=== PATIENT | female | born 1975 | race Caucasian/White ===

== ENCOUNTER 2016-12-03 19:15 | Inpatient (IN) | payer OTHER ==
--- NOTE | ~2016-12-03 | OP ---
Record Of Operation [facility] [address] [place]. [address] NAME: LAMBERT MILNER : 71 STATUS : ADM IN PAT#: [id number] AGE: 41 ADM/REG DATE : 12/03/16 MR#: [id number] REPORT SERV DATE: 12/10/16 DICTATED BY: MEY CHICAS JR. DATE: 12/09/16 REPORT STATUS : Draft TRANSCRIBED BY: MYLES DATE: 12/09/16 DATE OF PROCEDURE: 12/09/2016 COMMERCIAL FISHERMAN: Ariane Lockwood. PROCEDURE: Left rjvqs-woh-mjde amputation. PREOPERATIVE DIAGNOSIS: Left foot ulcer with osteomyelitis. POSTOPERATIVE DIAGNOSIS: Left foot ulcer with osteomyelitis. ANESTHESIA: General. INDICATIONS: The patient has a history of diabetic foot ulcer. She had transmetatarsal amputation. This had nonhealing of the wound with imaging showing persistent osteomyelitis. Hnrll-kqi-flft amputation is indicated for treatment. FINDINGS: There was viable tissue at the division site. DESCRIPTION OF PROCEDURE: With adequate general anesthesia, the patient was placed in supine position. The left leg was prepped and draped sterilely. A standard below the knee amputation of the posterior flap incision was outlined four fingerbreadths below the tibial prominence. Incision was made and deepened into the soft tissues. The tibia was identified. This was divided with the oscillating saw. Remaining soft tissue was divided down to the fibula was similarly divided. Main vessels were clamped and divided. Remaining soft tissue divided with the amputation knife, which enabled to move the specimen that was submitted to Pathology. Additional bleeders controlled with suture ligatures of Vicryl, electrocautery, and then the main vessels with suture ligatures of silk. Then, the wound was closed in layers with 0 Vicryl sutures to the fascial layers. Then the skin was approximated with mattress suture of 3-0 nylon and wan for the skin. A Prevena type addressed dressing was placed over the wound. The patient left the operating room in satisfactory condition. ESTIMATED BLOOD LOSS: 100 mL. LAVERN/MYLES Mey Chicas Jr., M.D. / [id number] CC: Jose Rouse MD
--- NOTE | ~2016-12-03 | DS ---
Discharge Summary [facility] [address] [place]. [address] NAME: LAMBERT MILNER : 71 STATUS : DIS IN PAT#: [id number] AGE: 41 ADM/REG DATE : 12/03/16 MR#: [id number] REPORT SERV DATE: 12/22/16 DICTATED BY: MARCELLA ROUSE DATE: 12/21/16 REPORT STATUS : Draft TRANSCRIBED BY: MODL DATE: 12/21/16 ADMISSION DATE: 12/03/2016 DISCHARGE DATE: 12/21/2016 REASON FOR ADMISSION: Left lower extremity osteomyelitis. HISTORY OF PRESENT ILLNESS: Please refer to Dr. Sigala's history and physical dated 12/03/2016 for complete details regarding the patient's admission. In brief, the patient was admitted to the Hospitalist Service for management and evaluation of her left foot ulcer and uncontrolled diabetes. HOSPITAL COURSE: From admission to 12/12/2016, please refer to Adolfo Sánchez' interim summary. In brief, the patient was diagnosed with left foot osteomyelitis and had a BKA from Dr. Curran. Her diabetes was uncontrolled and we tried to manage that with insulin, but she was noncompliant and finally was able to get that straightened out. For hospital course from 12/12/2016 to 12/19/2016, please refer to Dr. Tovar's interim summary. During that week, efforts were spent by case management and social work to try and find a place for the patient in the rehab facility. Her BKA and other medical issues have been stable. Dr. Tovar made a couple of adjustments to her insulin regimen. Hospital course from 12/19/2016 to present, I assumed care of this patient on the from Dr. Tovar, at which point, her diabetes had been decently controlled. We have been trying to arrange for rehab at [facility] in [place]. After the patient's conversation with the facility, she was rude to them and rather demanding and the patient hung up the phone on the call center coordinator after which the facility decided that they would not accept the patient. Case management and social work had attempted to find the patient facility. However, there are no facilities that would accept her given her behavior and insurance, and we were unable to arrange for home health because of her past behavior and noncompliance, and home health has refused to take her. We are stuck with discharging the patient home. We will teach her how to do wound care, which all that is required with wound care is just dressing changes periodically. We will make a followup appointment with [facility] and for the patient to follow up with Dr. Curran. Her pain has been controlled. She has reached maximal hospitalization, and again has burned all of her bridges with her behavior and noncompliance that we are stuck sending her home. The patient will be discharged home today in a stable condition. DISCHARGE DIAGNOSES: 1. Left foot osteomyelitis, status post hvlml-ekg-woqe amputation by Dr. Curran. 2. Type 2 diabetes, uncontrolled with hemoglobin A1c of 15.1%. 3. Hypertension. 4. Obesity. 5. Tobacco dependency. Meth use. PROCEDURES: Include Dr. Curran, left BKA; foot x-ray; three-phase bone scan. DISCHARGE MEDICATIONS: Include insulin Levemir FlexPen 40 units twice a day, lisinopril 10 mg daily, Humalog 20 units before meals, metformin 1000 mg twice a day, Percocet 5/325 mg Discharge Summary [address] [address] NAME: LAMBERT MILNER : 71 STATUS : DIS IN PAT#: [id number] AGE: 41 ADM/REG DATE : 12/03/16 MR#: [id number] REPORT SERV DATE: 12/22/16 DICTATED BY: MARCELLA ROUSE DATE: 12/21/16 REPORT STATUS : Draft TRANSCRIBED BY: MODL DATE: 12/21/16 every eight hours p.r.n. pain, #20 given. The patient followup with the [facility] and Dr. Curran. I spent over 30 minutes discharge planning and coordination of care on this patient. DICTATED BY: MD JOSE Mcneil/MYLES Marcella Rouse MD / [id number] CC: Marcella Rouse MD
--- NOTE | ~2016-12-03 | HP ---
History And Physical [address] [address] NAME: LAMBERT MILNER : 71 STATUS : ADM IN [facility]#: [id number] AGE: 41 ADM/REG DATE : 12/03/16 MR#: [id number] REPORT SERV DATE: 12/04/16 DICTATED BY: CLARY SIGALA DATE: 12/03/16 REPORT STATUS : Draft TRANSCRIBED BY: MODTony DATE: 12/03/16 DATE OF ADMISSION: 12/03/2016 CHIEF COMPLAINT: A 41-year-old female, presenting with left foot infection. HISTORY OF PRESENT ILLNESS: The patient's history was obtained through careful interview with the patient and friend, coupled with review of [facility] medical records. The patient has had multiple partial amputations of her left foot from osteomyelitis and recurrent diabetic foot ulcer with infection; now over the last two weeks, she has had blistering, swelling, and redness extending up her left foot. She describes left foot discomfort, a throbbing cramp in quality, 6/10 severity. She has had increasing purulent drainage. She has had poor balance, dizziness, and lightheadedness. No fevers or chills. No nausea or vomiting. No shortness of breath. The patient admits that she was unable to fill a prescription for supplies related to her Levemir dosing as they were too expensive and therefore she is literally been not taking her basal insulin and not checking her blood sugars for several weeks now. REVIEW OF SYSTEMS: Otherwise, a 14-point review of systems was obtained was negative. PAST MEDICAL HISTORY: 1. Diabetes. 2. Group B strep and MRSA infections. 3. Cardiac arrhythmia status post ablation and pacemaker placement. 4. COPD. 5. Gastroesophageal reflux disorder. 6. Cellulitis with ulcers. 7. Polysubstance abuse with benzodiazepines and amphetamines. 8. Neuropathy. 9. Fatty liver disease. PAST SURGICAL HISTORY: 1. Foot amputations. 2. Cardiac ablation status post pacemaker placement. 3. Hysterectomy. 4. Cervical spine surgery. 5. Tubal ligation. 6. Right pubic abscess and drainage. History And Physical [address] [place]. [address] NAME: LAMBERT MILNER : 71 STATUS : ADM IN [facility]#: [id number] AGE: 41 ADM/REG DATE : 12/03/16 MR#: [id number] REPORT SERV DATE: 12/04/16 DICTATED BY: CLARY SIGALA DATE: 12/03/16 REPORT STATUS : Draft TRANSCRIBED BY: MYLES DATE: 12/03/16 ALLERGIES: NO KNOWN DRUG ALLERGIES. SOCIAL HISTORY: The patient smokes. Does not drink alcohol. Lives in [place], [place]. Lives alone, has 19-year-old son. She is seen by Home Health Care and the [facility]. FAMILY HISTORY: Father of complications of diabetes when he was only 56 years old and had undergone amputations as well. A strong family history of cancer and heart disease. CURRENT MEDICATIONS: 1. Levemir 40 units subcutaneous twice a day. 2. Humalog 20 units before each meal. 3. Sliding-scale insulin. She has been out of her insulin for several weeks. 4. Metformin 1000 mg p.o. b.i.d. 5. Percocet p.r.n. 6. Bactrim Double Strength. PHYSICAL EXAMINATION: VITAL SIGNS: Temperature 98.6, pulse 72, blood pressure 138/82, respiratory rate 20, and O2 saturation 100% on room air. GENERAL: A pleasant, cooperative female, in no distress. HEENT: Pupils equal, round, and reactive to light. No conjunctival pallor. No scleral icterus. Nares are patent. Oropharynx is clear of obstruction. Moist mucous membranes. NECK: Trachea midline. No thyromegaly. LYMPH: No cervical lymphadenopathy. No supraclavicular lymphadenopathy. No inguinal lymphadenopathy. RESPIRATORY: Clear to auscultation at bases. No wheezes, rales, or rhonchi. Normal respiratory effort. CARDIOVASCULAR: Regular rate and rhythm. No murmurs, rubs, or gallops. No current extremity edema is appreciated. ABDOMEN: Soft, nontender, and nondistended. Normal bowel sounds auscultated throughout. No hepatosplenomegaly. DERMATOLOGICAL: The patient has significant erythema, heat, swelling, tenderness, all over her left foot associated with chronic ulceration with now purulent drainage and blistering effect, and some necrotic looking debris around the ulcer. Otherwise, warm and dry extremities. No pallor. No cyanosis. PSYCHIATRIC: Tearful affect, claims to be in a good mood though. Alert and oriented x3. LABORATORY DATA: White blood cell count 10.2, hemoglobin 12, hematocrit 38, and platelets 307. Sodium 131, potassium 3.9, chloride 98, bicarb 28, BUN 15, creatinine 0.17, and glucose 492. STUDIES: An x-ray of the left foot suggest osteomyelitis. ASSESSMENT AND PLAN: 1. Left foot ulcer infection. Check wound culture. Check blood cultures. Check an MRI History And Physical [address] [place]. [address] NAME: LAMBERT MILNER : 71 STATUS : ADM IN [facility]#: [id number] AGE: 41 ADM/REG DATE : 12/03/16 MR#: [id number] REPORT SERV DATE: 12/04/16 DICTATED BY: CLARY SIGALA DATE: 12/03/16 REPORT STATUS : Draft TRANSCRIBED BY: MYLES DATE: 12/03/16 of the foot to further define possible abscess and osteomyelitis, history of group B strep and MRSA. We will initially place on IV vancomycin and IV Zosyn. 2. Uncontrolled diabetes. Check hemoglobin A1c. Noncompliant with checking blood sugars because of inability to afford her diabetic supplies. We will obtain a Case Management consult, [employer] consult. Restart basal insulin and sliding scale insulin. 3. Chronic obstructive pulmonary disease. Counseled tobacco abstinence. Place on DuoNeb nebulizers. DAVL/MYLES Clary Sigala M.D. / [id number] CC: MD Ronaldo Dahl M.D.
--- NOTE | ~2016-12-03 | IDS ---
Interim Discharge Summary [facility] [address] [place]. [address] NAME: LAMBERT MILNER : 71 STATUS : ADM IN PAT#: [id number] AGE: 41 ADM/REG DATE : 12/03/16 MR#: [id number] REPORT SERV DATE: 12/12/16 DICTATED BY: DATE: REPORT STATUS : Draft TRANSCRIBED BY: MODL DATE: 12/12/16 ADMISSION DATE: 12/03/2016 DISCHARGE DATE: INTERIM DISCHARGE DIAGNOSES: 1. Left foot osteomyelitis status post bilateral knee amputation, postop day #3. 2. Diabetes mellitus type 2, hemoglobin A1c 15.1. 3. Hypertension. 4. Obesity with a BMI of 32. 5. Tobacco dependence. 6. Methamphetamine dependence. CONSULTING PHYSICIANS: Include Dr. Fidel Curran with Surgery. IMAGING: Includes left foot x-ray as well as a three-phase bone scan which was positive for osteomyelitis. PROCEDURES: Include a left BKA performed by Dr. Fidel Curran. For full H and P, please refer to Dr. Ryan Sigala's dictation on 12/03/2016. HOSPITAL COURSE/PROBLEM LIST: 1. Left foot osteomyelitis status post BKA. The patient has done well postop. She has received pain control with Dilaudid IV which I will decrease from 1 mg q.2 hours to 0.5 mg q.4 hours p.r.n., and increase Percocet to 10 mg p.o. q.4 hours upon patient request to wean Dilaudid. The patient has been afebrile. Last white blood cell count was 11.7 on 12/11/2016. She is still on IV vancomycin. I will recheck a CBC in the morning to check the white blood cell count as well as monitor for fevers. The patient is afebrile tomorrow, and white blood cell count was within normal limits. Considering, the patient had a BKA, likely the IV vancomycin could be discontinued. 2. Diabetes mellitus type 2 with hemoglobin A1c of 15.1. The patient is currently on Levemir 50 units subcu b.i.d. as well as 25 units insulin aspart during meals and level 3 sliding-scale. The patient's blood glucose has ranged from 100s to 300s. The patient frequently leaves the floor to smoke outside, and eats food out of vending machines. She is noncompliant with her diet so it is difficult to control her blood sugars. However, over the last 24 hours, they have improved quite greatly ranging from 98 to 214. 3. Hypertension. This is controlled. 4. Obesity with a BMI of 32. Importance of adherence to diet was discussed with the patient. 5. Tobacco dependence. I ordered nicotine patch which the patient reports itching "all over" so it was discontinued. 6. Methamphetamine, IV dependence. The patient reported to me several days ago that she was using IV methamphetamine and quit on her own a week prior to admission to the hospital. She asked for help in the form of inpatient drug rehabilitation. Case Management is aware. She first needs to go to inpatient rehab for physical therapy due Interim Discharge Summary [address] [address] NAME: LAMBERT MILNER : 71 STATUS : ADM IN PAT#: [id number] AGE: 41 ADM/REG DATE : 12/03/16 MR#: [id number] REPORT SERV DATE: 12/12/16 DICTATED BY: DATE: REPORT STATUS : Draft TRANSCRIBED BY: MODL DATE: 12/12/16 to her BKA and then afterwards, we are arranging for the patient to go to an inpatient drug and alcohol rehabilitation center. The patient is medically stable at this time and likely after Case Management choices the patient for inpatient rehab, she will be able to be discharged safely in the next several days. WILVER/MODL Christopher Sánchez NP / [id number] CC: MD Fidel Mcneil MD
--- NOTE | ~2016-12-03 | IDS ---
Interim Discharge Summary [facility] [address] [place]. [address] NAME: LAMBERT MILNER : 71 STATUS : ADM IN PAT#: [id number] AGE: 41 ADM/REG DATE : 12/03/16 MR#: [id number] REPORT SERV DATE: 12/19/16 DICTATED BY: MEY MITCHELL DATE: 12/19/16 REPORT STATUS : Draft TRANSCRIBED BY: MYLES DATE: 12/19/16 ADMISSION DATE: 12/03/2016 DISCHARGE DATE: ADDENDUM: This dictation is an addition to interim discharge summary dictated by Christopher Sánchez NP, on 12/12/2016. I assumed care of the patient on 12/13/2016. At that time, the patient was status post left BKA. Case Management had already been consulted and was working on placement for the patient. Rehab placement has proved to be difficult due to concerns about her meth abuse and her medical noncompliance. The patient was initially rejected from [facility] and also rejected by [facility]; however, rehab placement has been found by Case Management for the patient with plans of the patient being transferred to facility tomorrow. While the patient was under my care, she has remained hemodynamically stable. Her tobacco use was readdressed with the patient. She, at this point, is not willing to quit and states that she tried the nicotine patch which broke her out. She gains comfort from the fact that she was told that her lungs were very clear and not consistent with that of a smoker prior to surgery. All other information in the interim discharge summary remains the same. Of note, case management is greatly appreciated for their hard work and their efforts in finding placement for the patient. DAMIAN Mey Mitchell MD / [id number] CC: Mey Mitchell MD UNKNOWN
[~2016-12-03 19:15] MED LIST: ADVIL PO; ALEVE220 MG PO; BACTRIM DS1 TAB PO; BACTRIM PO; BIST PO; DAKINS TOP; DSS PO; EX-LAX PO; FLAG500TAB PO; FLORASTOR250 MG PO; GLUCOPHAGE1000 MG PO; GLUCPH PO; HUMALOG SC; HUMALOGPEN SC; IODOSORB TOP; LANTUS FOR SC; LEVAQUIN750 MG PO; LEVEMFLXPN SC; LEVEMIR SC; LIDO5OINT TOP; MONODOX100 MG PO; NICODERM C21 MG/241 TOP; NORCO1 TA1 PO; NOVOLOG SC; PCET PO; ZOVIRAX400 MG PO
[2016-12-03 20:00] LABS: BASOPHILS 0.3 %; BASOPHILS ABSOLUTE 0.03 10/3/uL (0.0-0.16); EOSINOPHILS ABSOLUTE 0.31 10/3/uL (0.0-0.53); HEMOGLOBIN 12.3 g/dL (12.0-16.0); IMMATURE GRANULOCYTES 0.3 %; IMMATURE GRANULOCYTES ABSOLUTE 0.03 10/3/uL (0.0-0.11); LYMPHOCYTES 42.9 %; LYMPHOCYTES ABSOLUTE 4.36 10/3/uL (0.67-4.30); MEAN CORPUS HGB CONC 32.7 g/dL (32.0-36.0); MEAN CORPUSCULAR HEMOGLOB 24.8 pg (26.0-34.0); MEAN PLATELET VOLUME 9.2 fL (9.2-13.0); MONOCYTES 5.5 %; MONOCYTES ABSOLUTE 0.56 10/3/uL (0.21-1.20); NEUTROPHILS ABSOLUTE 4.88 10/3/uL (2.02-8.40); PLATELET COUNT 307 10/3/uL (150-400); RBC DISTRIBUTION WIDTH 16.1 % (12.0-16.0); WHITE BLOOD CELLS 10.2 10/3/uL (4.5-10.5)
[2016-12-03 20:03] LABS: HEMATOCRIT 37.6 % (36.0-48.0); MANUAL DIFF NO %; RED CELL COUNT 4.95 10/6/uL (4.0-5.6)
[2016-12-03 20:15] LABS: CALCIUM, SERUM 8.8 MG/DL (8.5-10.4); CHLORIDE, SERUM 98 MMOL/L (96-112); CO2 (CARBON DIOXIDE) 28 MMOL/L (24-34); CREATININE 1.17 MG/DL (0.55-1.02); GFR AFRICAN AMERICAN 66 ML/MIN (>=60); GFR NON AFRICAN AMERICAN 57 ML/MIN (>=60); POTASSIUM, SERUM 3.9 MMOL/L (3.5-5.3)
[2016-12-03 20:20] LABS: BUN (BLOOD UREA NITROGEN) 15 MG/DL (6-23); GLUCOSE, SERUM 492 MG/DL (60-99); SODIUM, SERUM 131 MMOL/L (135-148)
[2016-12-03 20:57] LABS: ACETONE NEG
[2016-12-04 06:37] LABS: BUN (BLOOD UREA NITROGEN) 13 MG/DL (6-23); CHLORIDE, SERUM 108 MMOL/L (96-112); CO2 (CARBON DIOXIDE) 21 MMOL/L (24-34); CREATININE 0.83 MG/DL (0.55-1.02); GFR AFRICAN AMERICAN 100 ML/MIN (>=60); GFR NON AFRICAN AMERICAN 86 ML/MIN (>=60); GLUCOSE, SERUM 378 MG/DL (60-99); POTASSIUM, SERUM 4.1 MMOL/L (3.5-5.3); SGPT(ALT) 9 U/L (5-65); SODIUM, SERUM 135 MMOL/L (135-148); TOTAL BILIRUBIN 0.6 MG/DL (0-1.2); ULTRASENSITIVE TSH 0.729 MCIU/ML (0.358-3.740)
[2016-12-04 06:38] LABS: A/G RATIO 0.4 (0.7-1.9); ALBUMIN 1.6 G/DL (3.5-5.0); ALKALINE PHOSPHATASE 114 U/L (45-117); GLOBULIN 4.1 G/DL (2.5-4.1); SGOT(AST) 12 U/L (5-40); TOTAL PROTEIN 5.7 G/DL (6.0-8.5)
[2016-12-04 07:06] LABS: BASOPHILS 0.4 %; BASOPHILS ABSOLUTE 0.03 10/3/uL (0.0-0.16); EOSINOPHILS ABSOLUTE 0.31 10/3/uL (0.0-0.53); HEMATOCRIT 36.7 % (36.0-48.0); HEMOGLOBIN 12.1 g/dL (12.0-16.0); IMMATURE GRANULOCYTES 0.1 %; IMMATURE GRANULOCYTES ABSOLUTE 0.01 10/3/uL (0.0-0.11); LYMPHOCYTES 42.1 %; LYMPHOCYTES ABSOLUTE 3.28 10/3/uL (0.67-4.30); MEAN CORPUSCULAR HEMOGLOB 24.9 pg (26.0-34.0); MEAN CORPUSCULAR VOLUME 75.7 fL (80-100); MEAN PLATELET VOLUME 8.8 fL (9.2-13.0); MONOCYTES 4.6 %; MONOCYTES ABSOLUTE 0.36 10/3/uL (0.21-1.20); NEUTROPHILS 48.8 %; PLATELET COUNT 270 10/3/uL (150-400); RED CELL COUNT 4.85 10/6/uL (4.0-5.6); WHITE BLOOD CELLS 7.8 10/3/uL (4.5-10.5)
[2016-12-04 07:17] LABS: MANUAL DIFF NO %
[2016-12-04 08:29] LABS: PARTIAL THROMBO TIME 26.7 SEC (22.5-37.2)
[2016-12-05 14:45] LABS: BASOPHILS 0.2 %; BASOPHILS ABSOLUTE 0.02 10/3/uL (0.0-0.16); EOSINOPHILS 3.3 %; EOSINOPHILS ABSOLUTE 0.28 10/3/uL (0.0-0.53); HEMATOCRIT 35.2 % (36.0-48.0); HEMOGLOBIN 11.5 g/dL (12.0-16.0); IMMATURE GRANULOCYTES 0.1 %; IMMATURE GRANULOCYTES ABSOLUTE 0.01 10/3/uL (0.0-0.11); LYMPHOCYTES 50.8 %; LYMPHOCYTES ABSOLUTE 4.33 10/3/uL (0.67-4.30); MEAN CORPUS HGB CONC 32.7 g/dL (32.0-36.0); MEAN CORPUSCULAR HEMOGLOB 24.9 pg (26.0-34.0); MEAN CORPUSCULAR VOLUME 76.4 fL (80-100); MONOCYTES 5.6 %; MONOCYTES ABSOLUTE 0.48 10/3/uL (0.21-1.20); PLATELET COUNT 291 10/3/uL (150-400); RBC DISTRIBUTION WIDTH 16.5 % (12.0-16.0); RED CELL COUNT 4.61 10/6/uL (4.0-5.6); WHITE BLOOD CELLS 8.5 10/3/uL (4.5-10.5)
[2016-12-05 14:46] LABS: MANUAL DIFF NO %
[2016-12-05 14:56] LABS: SGOT(AST) 11 U/L (5-40)
[2016-12-05 15:11] LABS: ALKALINE PHOSPHATASE 112 U/L (45-117); CHLORIDE, SERUM 110 MMOL/L (96-112); CREATININE 0.96 MG/DL (0.55-1.02); GFR AFRICAN AMERICAN 84 ML/MIN (>=60); GFR NON AFRICAN AMERICAN 72 ML/MIN (>=60); POTASSIUM, SERUM 4.1 MMOL/L (3.5-5.3); SGPT(ALT) 10 U/L (5-65)
[2016-12-05 15:13] LABS: A/G RATIO 0.4 (0.7-1.9); BUN (BLOOD UREA NITROGEN) 17 MG/DL (6-23); CALCIUM, SERUM 9.1 MG/DL (8.5-10.4); CO2 (CARBON DIOXIDE) 30 MMOL/L (24-34); GLOBULIN 5.1 G/DL (2.5-4.1); GLUCOSE, SERUM 118 MG/DL (60-99); SODIUM, SERUM 143 MMOL/L (135-148); TOTAL BILIRUBIN 0.1 MG/DL (0-1.2); TOTAL PROTEIN 7.1 G/DL (6.0-8.5)
[2016-12-06 07:47] LABS: BASOPHILS 0.3 %; BASOPHILS ABSOLUTE 0.02 10/3/uL (0.0-0.16); EOSINOPHILS 3.4 %; EOSINOPHILS ABSOLUTE 0.27 10/3/uL (0.0-0.53); HEMATOCRIT 38.9 % (36.0-48.0); HEMOGLOBIN 12.5 g/dL (12.0-16.0); IMMATURE GRANULOCYTES 0.3 %; IMMATURE GRANULOCYTES ABSOLUTE 0.02 10/3/uL (0.0-0.11); LYMPHOCYTES 43.8 %; LYMPHOCYTES ABSOLUTE 3.43 10/3/uL (0.67-4.30); MANUAL DIFF NO %; MEAN CORPUS HGB CONC 32.1 g/dL (32.0-36.0); MEAN CORPUSCULAR HEMOGLOB 24.9 pg (26.0-34.0); MEAN CORPUSCULAR VOLUME 77.3 fL (80-100); MEAN PLATELET VOLUME 8.9 fL (9.2-13.0); MONOCYTES 4.7 %; MONOCYTES ABSOLUTE 0.37 10/3/uL (0.21-1.20); NEUTROPHILS 47.5 %; NEUTROPHILS ABSOLUTE 3.73 10/3/uL (2.02-8.40); PLATELET COUNT 297 10/3/uL (150-400); RBC DISTRIBUTION WIDTH 16.1 % (12.0-16.0); RED CELL COUNT 5.03 10/6/uL (4.0-5.6); WHITE BLOOD CELLS 7.8 10/3/uL (4.5-10.5)
[2016-12-06 08:09] LABS: A/G RATIO 0.4 (0.7-1.9); ALBUMIN 2.1 G/DL (3.5-5.0); ALKALINE PHOSPHATASE 116 U/L (45-117); BUN (BLOOD UREA NITROGEN) 15 MG/DL (6-23); CALCIUM, SERUM 9.3 MG/DL (8.5-10.4); CHLORIDE, SERUM 106 MMOL/L (96-112); CO2 (CARBON DIOXIDE) 25 MMOL/L (24-34); CREATININE 0.92 MG/DL (0.55-1.02); GFR AFRICAN AMERICAN 88 ML/MIN (>=60); GFR NON AFRICAN AMERICAN 76 ML/MIN (>=60); GLOBULIN 5.5 G/DL (2.5-4.1); GLUCOSE, SERUM 324 MG/DL (60-99); POTASSIUM, SERUM 4.6 MMOL/L (3.5-5.3); SGOT(AST) 12 U/L (5-40); SGPT(ALT) 7 U/L (5-65); SODIUM, SERUM 138 MMOL/L (135-148); TOTAL BILIRUBIN 0.1 MG/DL (0-1.2); TOTAL PROTEIN 7.6 G/DL (6.0-8.5); VANCOMYCIN TROUGH 15.4 MCG/ML (10.0-20.0)
[2016-12-06 20:43] LABS: ASCORBIC ACID (UR NOT ORDER) NEG (NEG); BILIRUBIN, URINE NEGATIVE (NEG); KETONE, URINE NEGATIVE (NEG); LEUKOCYTE ESTERASE(NOT OR NEG (NEG); WBC (NOT ORDERED) (RFLEX) 3 (0-5)
[2016-12-06 21:51] LABS: AMPHETAMINES (NOT ORD) POS (NEG); BARBITURATES (NOT ORDERED NEG (NEG); BENZODIAZEPINES (NOT ORD) NEG (NEG); CANNABINOIDS (THC) NEG (NEG); COCAINE (NOT ORDERED) NEG (NEG); OPIATES POS (NEG); PHENCYCLIDINE(PCP) NEG (NEG); TRICYCLICS NEG (NEG)
[2016-12-07 05:37] LABS: BASOPHILS 0.3 %; BASOPHILS ABSOLUTE 0.02 10/3/uL (0.0-0.16); EOSINOPHILS 4.8 %; EOSINOPHILS ABSOLUTE 0.36 10/3/uL (0.0-0.53); HEMATOCRIT 37.4 % (36.0-48.0); HEMOGLOBIN 11.8 g/dL (12.0-16.0); IMMATURE GRANULOCYTES 0.1 %; IMMATURE GRANULOCYTES ABSOLUTE 0.01 10/3/uL (0.0-0.11); LYMPHOCYTES ABSOLUTE 3.35 10/3/uL (0.67-4.30); MEAN CORPUS HGB CONC 31.6 g/dL (32.0-36.0); MEAN CORPUSCULAR HEMOGLOB 24.7 pg (26.0-34.0); MEAN CORPUSCULAR VOLUME 78.4 fL (80-100); MONOCYTES 5.1 %; MONOCYTES ABSOLUTE 0.38 10/3/uL (0.21-1.20); NEUTROPHILS 44.7 %; NEUTROPHILS ABSOLUTE 3.33 10/3/uL (2.02-8.40); PLATELET COUNT 288 10/3/uL (150-400); RBC DISTRIBUTION WIDTH 16.2 % (12.0-16.0); RED CELL COUNT 4.77 10/6/uL (4.0-5.6); WHITE BLOOD CELLS 7.5 10/3/uL (4.5-10.5)
[2016-12-07 05:38] LABS: MANUAL DIFF NO %
[2016-12-08 06:41] LABS: BASOPHILS 0.5 %; BASOPHILS ABSOLUTE 0.04 10/3/uL (0.0-0.16); EOSINOPHILS 4.6 %; EOSINOPHILS ABSOLUTE 0.39 10/3/uL (0.0-0.53); HEMATOCRIT 36.4 % (36.0-48.0); HEMOGLOBIN 11.8 g/dL (12.0-16.0); IMMATURE GRANULOCYTES 0.2 %; IMMATURE GRANULOCYTES ABSOLUTE 0.02 10/3/uL (0.0-0.11); LYMPHOCYTES 43.7 %; LYMPHOCYTES ABSOLUTE 3.74 10/3/uL (0.67-4.30); MEAN CORPUS HGB CONC 32.4 g/dL (32.0-36.0); MEAN CORPUSCULAR HEMOGLOB 25.1 pg (26.0-34.0); MEAN CORPUSCULAR VOLUME 77.4 fL (80-100); MEAN PLATELET VOLUME 8.8 fL (9.2-13.0); MONOCYTES 5.5 %; MONOCYTES ABSOLUTE 0.47 10/3/uL (0.21-1.20); NEUTROPHILS 45.5 %; PLATELET COUNT 290 10/3/uL (150-400); RBC DISTRIBUTION WIDTH 16.1 % (12.0-16.0); WHITE BLOOD CELLS 8.6 10/3/uL (4.5-10.5)
[2016-12-08 06:49] LABS: MANUAL DIFF NO %
[2016-12-08 07:06] LABS: BUN (BLOOD UREA NITROGEN) 13 MG/DL (6-23); CALCIUM, SERUM 8.7 MG/DL (8.5-10.4); CHLORIDE, SERUM 109 MMOL/L (96-112); CO2 (CARBON DIOXIDE) 27 MMOL/L (24-34); CREATININE 0.88 MG/DL (0.55-1.02); FERRITIN 46 NG/ML (8-252); GFR AFRICAN AMERICAN 93 ML/MIN (>=60); GFR NON AFRICAN AMERICAN 80 ML/MIN (>=60); GLUCOSE, SERUM 256 MG/DL (60-99); IRON BINDING CAPACITY 263 MCG/DL (225-410); IRON, SERUM 37 MCG/DL (35-150); POTASSIUM, SERUM 4.4 MMOL/L (3.5-5.3); SODIUM, SERUM 142 MMOL/L (135-148)
[2016-12-09 06:50] LABS: CALCIUM, SERUM 8.8 MG/DL (8.5-10.4); CHLORIDE, SERUM 106 MMOL/L (96-112); CO2 (CARBON DIOXIDE) 28 MMOL/L (24-34); CREATININE 0.96 MG/DL (0.55-1.02); GFR AFRICAN AMERICAN 84 ML/MIN (>=60); GFR NON AFRICAN AMERICAN 72 ML/MIN (>=60); GLUCOSE, SERUM 275 MG/DL (60-99); POTASSIUM, SERUM 3.8 MMOL/L (3.5-5.3); SODIUM, SERUM 141 MMOL/L (135-148)
[2016-12-09 06:51] LABS: BUN (BLOOD UREA NITROGEN) 17 MG/DL (6-23)
[2016-12-10 05:28] LABS: BASOPHILS 0.1 %; BASOPHILS ABSOLUTE 0.01 10/3/uL (0.0-0.16); EOSINOPHILS 0 %; HEMATOCRIT 33.4 % (36.0-48.0); HEMOGLOBIN 10.7 g/dL (12.0-16.0); IMMATURE GRANULOCYTES 0.3 %; IMMATURE GRANULOCYTES ABSOLUTE 0.04 10/3/uL (0.0-0.11); LYMPHOCYTES 19.5 %; LYMPHOCYTES ABSOLUTE 2.66 10/3/uL (0.67-4.30); MEAN CORPUSCULAR HEMOGLOB 24.7 pg (26.0-34.0); MEAN CORPUSCULAR VOLUME 77.1 fL (80-100); MEAN PLATELET VOLUME 8.8 fL (9.2-13.0); MONOCYTES 3.4 %; MONOCYTES ABSOLUTE 0.46 10/3/uL (0.21-1.20); NEUTROPHILS 76.7 %; NEUTROPHILS ABSOLUTE 10.48 10/3/uL (2.02-8.40); PLATELET COUNT 323 10/3/uL (150-400); RBC DISTRIBUTION WIDTH 16.2 % (12.0-16.0); RED CELL COUNT 4.33 10/6/uL (4.0-5.6)
[2016-12-10 05:29] LABS: MANUAL DIFF NO %; WHITE BLOOD CELLS 13.7 10/3/uL (4.5-10.5)
[2016-12-10 05:41] LABS: BUN (BLOOD UREA NITROGEN) 19 MG/DL (6-23); CHLORIDE, SERUM 103 MMOL/L (96-112); CO2 (CARBON DIOXIDE) 24 MMOL/L (24-34); CREATININE 1.16 MG/DL (0.55-1.02); GFR AFRICAN AMERICAN 67 ML/MIN (>=60); GFR NON AFRICAN AMERICAN 58 ML/MIN (>=60); GLUCOSE, SERUM 323 MG/DL (60-99); POTASSIUM, SERUM 4.5 MMOL/L (3.5-5.3); SODIUM, SERUM 138 MMOL/L (135-148)
[2016-12-11 03:51] LABS: HEMOGLOBIN 9.4 g/dL (12.0-16.0); MEAN CORPUSCULAR HEMOGLOB 24.9 pg (26.0-34.0); MEAN PLATELET VOLUME 8.9 fL (9.2-13.0); PLATELET COUNT 294 10/3/uL (150-400); RBC DISTRIBUTION WIDTH 16.7 % (12.0-16.0); RED CELL COUNT 3.77 10/6/uL (4.0-5.6); WHITE BLOOD CELLS 11.7 10/3/uL (4.5-10.5)
[2016-12-11 03:54] LABS: CALCIUM, SERUM 8.5 MG/DL (8.5-10.4); CHLORIDE, SERUM 108 MMOL/L (96-112); CO2 (CARBON DIOXIDE) 28 MMOL/L (24-34); CREATININE 1.02 MG/DL (0.55-1.02); GFR AFRICAN AMERICAN 78 ML/MIN (>=60); GFR NON AFRICAN AMERICAN 67 ML/MIN (>=60); POTASSIUM, SERUM 4.1 MMOL/L (3.5-5.3); SODIUM, SERUM 140 MMOL/L (135-148); VANCOMYCIN TROUGH 22.5 MCG/ML (10.0-20.0)
[2016-12-11 03:59] LABS: HEMATOCRIT 29.4 % (36.0-48.0); MANUAL DIFF YES %
[2016-12-11 04:09] LABS: EOSINOPHILS 1 %; EOSINOPHILS ABSOLUTE (CALC) 0.12 10/3/uL (0.0-0.53); LYMPHOCYTES 36 %; LYMPHOCYTES ABSOLUTE (CALC) 4.21 10/3/uL (0.67-4.30); MONOCYTES 3 %; MONOCYTES ABSOLUTE (CALC) 0.35 10/3/uL (0.21-1.20); NEUTROPHILS ABSOLUTE (CALC) 7.02 10/3/uL (2.02-8.40); SEGMENTED NEUTROPHIL (0) 60 %; TOTAL NUCLEATED CELLS 100
[2016-12-11 04:09] LABS: BUN (BLOOD UREA NITROGEN) 23 MG/DL (6-23); GLUCOSE, SERUM 156 MG/DL (60-99)
[2016-12-11 04:10] LABS: PLATELET ESTIMATE ADQ (ADEQUATE); RBC MORPHOLOGY NORM (NORMAL)
[2016-12-13 06:34] LABS: BUN (BLOOD UREA NITROGEN) 14 MG/DL (6-23); CALCIUM, SERUM 8.8 MG/DL (8.5-10.4); CHLORIDE, SERUM 109 MMOL/L (96-112); CO2 (CARBON DIOXIDE) 27 MMOL/L (24-34); GFR AFRICAN AMERICAN 105 ML/MIN (>=60); GFR NON AFRICAN AMERICAN 90 ML/MIN (>=60); GLUCOSE, SERUM 138 MG/DL (60-99); POTASSIUM, SERUM 3.9 MMOL/L (3.5-5.3); SODIUM, SERUM 143 MMOL/L (135-148)
[2016-12-13 06:42] LABS: BASOPHILS 0.2 %; BASOPHILS ABSOLUTE 0.02 10/3/uL (0.0-0.16); EOSINOPHILS 4.6 %; HEMATOCRIT 29.7 % (36.0-48.0); HEMOGLOBIN 9.5 g/dL (12.0-16.0); IMMATURE GRANULOCYTES 0.3 %; IMMATURE GRANULOCYTES ABSOLUTE 0.03 10/3/uL (0.0-0.11); LYMPHOCYTES 46.2 %; MANUAL DIFF NO %; MEAN CORPUSCULAR HEMOGLOB 25.3 pg (26.0-34.0); MEAN PLATELET VOLUME 8.8 fL (9.2-13.0); MONOCYTES 7.1 %; MONOCYTES ABSOLUTE 0.61 10/3/uL (0.21-1.20); NEUTROPHILS 41.6 %; NEUTROPHILS ABSOLUTE 3.59 10/3/uL (2.02-8.40); PLATELET COUNT 299 10/3/uL (150-400); RBC DISTRIBUTION WIDTH 16.3 % (12.0-16.0); RED CELL COUNT 3.76 10/6/uL (4.0-5.6); WHITE BLOOD CELLS 8.7 10/3/uL (4.5-10.5)
[2016-12-14 06:12] LABS: BASOPHILS 0.2 %; BASOPHILS ABSOLUTE 0.02 10/3/uL (0.0-0.16); EOSINOPHILS 5.2 %; HEMATOCRIT 30.1 % (36.0-48.0); HEMOGLOBIN 9.6 g/dL (12.0-16.0); IMMATURE GRANULOCYTES 0.1 %; IMMATURE GRANULOCYTES ABSOLUTE 0.01 10/3/uL (0.0-0.11); LYMPHOCYTES 48.6 %; MANUAL DIFF NO %; MEAN CORPUS HGB CONC 31.9 g/dL (32.0-36.0); MEAN CORPUSCULAR HEMOGLOB 25.1 pg (26.0-34.0); MEAN CORPUSCULAR VOLUME 78.6 fL (80-100); MEAN PLATELET VOLUME 8.6 fL (9.2-13.0); MONOCYTES 5.6 %; MONOCYTES ABSOLUTE 0.54 10/3/uL (0.21-1.20); NEUTROPHILS 40.3 %; PLATELET COUNT 323 10/3/uL (150-400); RBC DISTRIBUTION WIDTH 16.2 % (12.0-16.0); RED CELL COUNT 3.83 10/6/uL (4.0-5.6); WHITE BLOOD CELLS 9.7 10/3/uL (4.5-10.5)
[2016-12-14 06:34] LABS: A/G RATIO 0.5 (0.7-1.9); ALBUMIN 2.3 G/DL (3.5-5.0); BUN (BLOOD UREA NITROGEN) 16 MG/DL (6-23); CALCIUM, SERUM 9.4 MG/DL (8.5-10.4); CHLORIDE, SERUM 108 MMOL/L (96-112); CO2 (CARBON DIOXIDE) 28 MMOL/L (24-34); CREATININE 0.93 MG/DL (0.55-1.02); GFR AFRICAN AMERICAN 87 ML/MIN (>=60); GFR NON AFRICAN AMERICAN 75 ML/MIN (>=60); GLOBULIN 4.8 G/DL (2.5-4.1); POTASSIUM, SERUM 4.1 MMOL/L (3.5-5.3); SGOT(AST) 17 U/L (5-40); SGPT(ALT) 15 U/L (5-65); SODIUM, SERUM 142 MMOL/L (135-148); TOTAL PROTEIN 7.1 G/DL (6.0-8.5)
[2016-12-14 06:35] LABS: ALKALINE PHOSPHATASE 83 U/L (45-117); GLUCOSE, SERUM 193 MG/DL (60-99); TOTAL BILIRUBIN 0.6 MG/DL (0-1.2)
[2016-12-15 06:08] LABS: BASOPHILS 0.3 %; BASOPHILS ABSOLUTE 0.02 10/3/uL (0.0-0.16); EOSINOPHILS 5.4 %; EOSINOPHILS ABSOLUTE 0.39 10/3/uL (0.0-0.53); HEMOGLOBIN 9.7 g/dL (12.0-16.0); IMMATURE GRANULOCYTES 0.3 %; IMMATURE GRANULOCYTES ABSOLUTE 0.02 10/3/uL (0.0-0.11); LYMPHOCYTES ABSOLUTE 3.46 10/3/uL (0.67-4.30); MANUAL DIFF NO %; MEAN CORPUS HGB CONC 31.3 g/dL (32.0-36.0); MEAN CORPUSCULAR HEMOGLOB 24.6 pg (26.0-34.0); MEAN CORPUSCULAR VOLUME 78.7 fL (80-100); MEAN PLATELET VOLUME 8.7 fL (9.2-13.0); MONOCYTES 6.2 %; MONOCYTES ABSOLUTE 0.45 10/3/uL (0.21-1.20); NEUTROPHILS 39.8 %; NEUTROPHILS ABSOLUTE 2.87 10/3/uL (2.02-8.40); PLATELET COUNT 318 10/3/uL (150-400); RED CELL COUNT 3.94 10/6/uL (4.0-5.6); WHITE BLOOD CELLS 7.2 10/3/uL (4.5-10.5)
[2016-12-15 06:23] LABS: A/G RATIO 0.5 (0.7-1.9); ALBUMIN 2.3 G/DL (3.5-5.0); ALKALINE PHOSPHATASE 84 U/L (45-117); BUN (BLOOD UREA NITROGEN) 19 MG/DL (6-23); CALCIUM, SERUM 9.5 MG/DL (8.5-10.4); CHLORIDE, SERUM 106 MMOL/L (96-112); CO2 (CARBON DIOXIDE) 29 MMOL/L (24-34); CREATININE 0.91 MG/DL (0.55-1.02); GFR AFRICAN AMERICAN 90 ML/MIN (>=60); GFR NON AFRICAN AMERICAN 77 ML/MIN (>=60); GLOBULIN 4.8 G/DL (2.5-4.1); GLUCOSE, SERUM 236 MG/DL (60-99); POTASSIUM, SERUM 4.1 MMOL/L (3.5-5.3); SGOT(AST) 15 U/L (5-40); SGPT(ALT) 14 U/L (5-65); SODIUM, SERUM 141 MMOL/L (135-148); TOTAL BILIRUBIN 0.7 MG/DL (0-1.2); TOTAL PROTEIN 7.1 G/DL (6.0-8.5)
[2016-12-18 10:40] LABS: BASOPHILS 0.3 %; BASOPHILS ABSOLUTE 0.02 10/3/uL (0.0-0.16); EOSINOPHILS 5.1 %; EOSINOPHILS ABSOLUTE 0.38 10/3/uL (0.0-0.53); HEMATOCRIT 32.8 % (36.0-48.0); HEMOGLOBIN 10.2 g/dL (12.0-16.0); IMMATURE GRANULOCYTES 0.3 %; IMMATURE GRANULOCYTES ABSOLUTE 0.02 10/3/uL (0.0-0.11); LYMPHOCYTES 49.5 %; LYMPHOCYTES ABSOLUTE 3.72 10/3/uL (0.67-4.30); MEAN CORPUS HGB CONC 31.1 g/dL (32.0-36.0); MEAN CORPUSCULAR HEMOGLOB 24.8 pg (26.0-34.0); MEAN CORPUSCULAR VOLUME 79.8 fL (80-100); MEAN PLATELET VOLUME 8.6 fL (9.2-13.0); MONOCYTES 6.5 %; MONOCYTES ABSOLUTE 0.49 10/3/uL (0.21-1.20); NEUTROPHILS 38.3 %; NEUTROPHILS ABSOLUTE 2.89 10/3/uL (2.02-8.40); PLATELET COUNT 344 10/3/uL (150-400); RBC DISTRIBUTION WIDTH 15.9 % (12.0-16.0); RED CELL COUNT 4.11 10/6/uL (4.0-5.6); WHITE BLOOD CELLS 7.5 10/3/uL (4.5-10.5)
[2016-12-18 10:42] LABS: MANUAL DIFF NO %
[2016-12-18 10:57] LABS: A/G RATIO 0.5 (0.7-1.9); ALBUMIN 2.4 G/DL (3.5-5.0); ALKALINE PHOSPHATASE 79 U/L (45-117); BUN (BLOOD UREA NITROGEN) 15 MG/DL (6-23); CALCIUM, SERUM 9.1 MG/DL (8.5-10.4); CHLORIDE, SERUM 107 MMOL/L (96-112); CO2 (CARBON DIOXIDE) 29 MMOL/L (24-34); CREATININE 0.95 MG/DL (0.55-1.02); GFR AFRICAN AMERICAN 85 ML/MIN (>=60); GFR NON AFRICAN AMERICAN 73 ML/MIN (>=60); GLOBULIN 4.6 G/DL (2.5-4.1); GLUCOSE, SERUM 251 MG/DL (60-99); POTASSIUM, SERUM 4.1 MMOL/L (3.5-5.3); SGPT(ALT) 13 U/L (5-65); SODIUM, SERUM 143 MMOL/L (135-148); TOTAL BILIRUBIN 0.1 MG/DL (0-1.2)
[2016-12-18 10:59] LABS: SGOT(AST) 17 U/L (5-40)
[2016-12-21] MEDS ORDERED: PRIN10 PO (12:26)
== END 2016-12-21 16:20 | disposition home or self-care (01) | DRG 617 ==
LOC: ER 19:15 → 5SO 21:07
PROVIDERS: Hospitalist; Internal Medicine; Nurse Practitioner Acute Care; Physician Assistant; Specialist
PROC: 0Y6G0ZZ Detachment at Left Knee Region, Open Approach (ICD-10-PCS; principal; 2016-12-09 15:45)
DX: E11.69 Type 2 diabetes mellitus with other specified complication (principal); M86.8X7 Other osteomyelitis, ankle and foot; E11.65 Type 2 diabetes mellitus with hyperglycemia; K76.0 Fatty (change of) liver, not elsewhere classified; F11.20 Opioid dependence, uncomplicated; E87.1 Hypo-osmolality and hyponatremia; F17.210 Nicotine dependence, cigarettes, uncomplicated; I10 Essential (primary) hypertension; J44.9 Chronic obstructive pulmonary disease, unspecified; E78.5 Hyperlipidemia, unspecified; K21.9 Gastro-esophageal reflux disease without esophagitis; E66.9 Obesity, unspecified; Z68.32 Body mass index [BMI] 32.0-32.9, adult; Z95.0 Presence of cardiac pacemaker; Z89.432 Acquired absence of left foot; Z91.19 Patient's noncompliance with other medical treatment and regimen
CPT/HCPCS: 73630-LT; 78315; 80048; 80053; 80202; 80305; 81001; 82009; 82728; 82962; 83036; 83540; 83550; 83605; 83735; 84100; 84134; 84443; 85025; 85610; 85730; 87040; 87070; 87205; 88307; 88311; 93005; 93288; 94640; 96365; 97110-GP; 97116-GP; 97162-GP; 97530-GP; 99285; A9270-GY; A9561; G8978-CK-GP; G8979-CJ-GP; J1170; J2250; J2405; J2543; J2550; J3010; J3370